=== PATIENT | male | born 1960 | race Caucasian/White ===

== ENCOUNTER 2017-02-09 10:56 | Emergency (ER) | payer OTHER ==
[2017-02-09 11:04] VITALS: BP 141/90
--- NOTE | 2017-02-09 12:02 | ER Document Report ---
ED General - General Mode of Arrival: Ambulatory Information source: Patient TRAVEL OUTSIDE OF THE [place] IN LAST 30 DAYS: No - HPI Onset: Other - Refer to HPI notes <EDITH TOLLIVER - Last Filed: 02/09/17 20:55> <JULIETTE PAIZ - Last Filed: 02/10/17 14:47> - General Chief Complaint: Abdominal Pain Stated Complaint: POSSIBLE PANCREAS PROBLEM Notes: Patient is a 56 year old male presenting to the ED for possible pancreatitis. Patient was called by urgent care and told to go to the ED to get evaluated for pancreatitis and get an ultrasound. Patient is unsure what the urgent care found and was not told any more information. Patient states that he does not have any symptoms, no epigastric pain, nausea, vomiting, headache, abdominal pain or other symptoms. Patient went to urgent care because he had had some dizziness and room spinning sensations when he stood up. Patient states this gets worse if he looks upwards. Patient states sometimes he feels off balance when he gets the room spinning sensation. 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 Patient denies any blurry or double vision with these sensations. Patient has a history of Hyperlipidemia, MN, and GERD. Patient states he was sent over by Dr. Magana, and today was his first appointment with the primary care physician. (EDITH TOLLIVER) - Related Data Allergies/Adverse Reactions: No Known Allergies Allergy (Unverified 02/09/17 11:03) Past Medical History - General Information source: Patient - Social History Smoking Status: Never Smoker Family History: None Patient has suicidal ideation: No Patient has homicidal ideation: No - Past Medical History Cardiac Medical History: Reports: Hx Heart Attack, Hx Hypercholesterolemia GI Medical History: Reports: Hx Gastroesophageal Reflux Disease <EDITH TOLLIVER - Last Filed: 02/09/17 20:55> Review of Systems - Review of Systems Constitutional: No symptoms reported EENT: No symptoms reported Cardiovascular: See HPI, Dizziness Respiratory: No symptoms reported Gastrointestinal: No symptoms reported Genitourinary: No symptoms reported Male Genitourinary: No symptoms reported Musculoskeletal: No symptoms reported Skin: No symptoms reported Hematologic/Lymphatic: No symptoms reported Neurological/Psychological: See HPI -: Yes All other systems reviewed and negative <EDITH TOLLIVER - Last Filed: 02/09/17 20:55> Physical Exam <EDITH TOLLIVER - Last Filed: 02/09/17 20:55> <JULIETTE PAIZ - Last Filed: 02/10/17 14:47> - Vital signs Vitals: Temp Pulse Resp BP Pulse Ox 98.5 F 78 20 141/90 H 97 02/09/17 11:03 02/09/17 11:03 02/09/17 11:03 02/09/17 11:03 02/09/17 11:03 - Notes Notes: GENERAL: Alert, interacts well. No acute distress. HEAD: Normocephalic, atraumatic. EYES: Pupils equal, round, and reactive to light. Extraocular movements intact. ENT: Oral mucosa moist, tongue midline. NECK: Full range of motion. Supple. Trachea midline. LUNGS: Clear to auscultation bilaterally, no wheezes, rales, or rhonchi. No respiratory distress. HEART: Regular rate and rhythm. No murmurs, gallops, or rubs. ABDOMEN: Soft, non-tender. Non-distended. Bowel sounds present in all 4 quadrants. EXTREMITIES: Moves all 4 extremities spontaneously. No edema. No cyanosis. NEUROLOGICAL: Alert and oriented x3. Normal speech. PSYCH: Normal affect, normal mood. SKIN: Warm, dry, normal turgor. No rashes or lesions noted. (EDITH TOLLIVER) Course - Laboratory Result Diagrams: 02/09/17 12:10 02/09/17 12:10 <EDITH TOLLIVER - Last Filed: 02/09/17 20:55> - Laboratory Result Diagrams: 02/09/17 12:10 02/09/17 12:10 <JULIETTE PAIZ - Last Filed: 02/10/17 14:47> - Re-evaluation Re-evalutation: 02/09/17 12:52 Patient presents to the emergency department says he sent by his primary care physician to rule out pancreatitis and they wanted ultrasound. Patient and family neurologic alert this with her first visit he does not have any symptoms they did some lab work called him back in time he needed to emergently go to the emergency department they mentioned hemoglobin A1c but did not tell him anything else on ED arrival and he has completely no symptoms whatsoever he does not have any abdominal pain nausea vomiting diarrhea fevers chills chest pain cough or shortness of breath. He has a long-standing history of dizziness which is not new or different today and sounds like vertebrobasilar insufficiency. He has a history of MN in the past but does not have any chest pain or shortness of breath. Has a normal physical exam vitals and abdominal examination. Patient is also not jaundiced and is on chronic Tylenol or concerns for Tylenol toxicity. He laboratory evaluation including white blood cell count lipase and liver enzymes are completely normal. At this point I am not certain what labs they were concerned about that they sent him over here urgently for the patient is asymptomatic well-appearing with normal stable labs and is stable to be discharged to follow-up with primary care physician in 3-4 days and discussed reasons for ED return (JULIETTE PAIZ) - Vital Signs Vital signs: Temp Pulse Resp BP Pulse Ox 98.5 F 78 20 141/90 H 97 02/09/17 11:03 02/09/17 11:03 02/09/17 11:03 02/09/17 11:03 02/09/17 11:03 - Laboratory Laboratory results interpreted by me: 02/09/17 02/09/17 12:10 12:10 Monocytes % 14.9 H BUN 23 H Discharge <EDITH TOLLIVER - Last Filed: 02/09/17 20:55> <JULIETTE PAIZ - Last Filed: 02/10/17 14:47> - Discharge Clinical Impression: evaluation for pancreatitis Condition: Stable Disposition: HOME, SELF-CARE Additional Instructions: sent by pcp for concerns for pancreatitis There are not having any symptoms of abdominal pain vomiting and your liver enzymes and pancreatic enzymes are all completely normal. At this point in time you are stable to go home follow-up with her primary care physician and return for increasing worsening any symptoms Contact your doctor at once or return here if you have increasing pain, shortness of breath, general swelling, increasing size of the abdomen, continued vomiting, muscle spasms, or other new symptoms. Scribe Attestation: 02/09/17 12:52 I personally performed the services described in the documentation, reviewed and edited the documentation which was dictated to my scribe in my presence, and it accurately records my words and actions. (JULIETTE PAIZ) Scribe Documentation - Scribe Written by Scribe:: Haider Jefferson 02/09/17 16:48 acting as scribe for :: Carlos <EDITH TOLLIVER - Last Filed: 02/09/17 20:55>
[2017-02-09 12:26] LABS: ABSOLUTE EOSINOPHILS # (AUTO) 0.2 10^3/uL (0.0-0.6); ABSOLUTE LYMPHOCYTES (AUTO) 1.6 10^3/uL (0.5-4.7); BASOPHILS % (AUTO) 0.7 % (0-2); EOSINOPHILS % (AUTO) 2.9 % (0-6); HEMATOCRIT 42.1 % (37.9-51.0); HEMOGLOBIN 14.1 g/dL (13.5-17.0); HGB HCT DIFFERENCE 0.2; LYMPHOCYTES % (AUTO) 22.8 % (13-45); MEAN CORPUSCULAR HEMOGLOBIN 29.3 pg (27.0-33.4); MEAN CORPUSCULAR HGB CONC 33.4 g/dL (32.0-36.0); MEAN CORPUSCULAR VOLUME 88 fl (80-97); MONOCYTES % (AUTO) 14.9 % (3-13); RED CELL DISTRIBUTION WIDTH 13.1 % (11.5-14.0); SEGMENTED NEUTROPHILS % (AUTO) 58.7 % (42-78); WHITE BLOOD COUNT 6.9 10^3/uL (4.0-10.5)
[2017-02-09 12:43] LABS: ALANINE AMINOTRANSFERASE 47 U/L (21-72); ALBUMIN 4.3 g/dL (3.5-5.0); ALKALINE PHOSPHATASE 110 U/L (38-126); ANION GAP 12 (5-19); ASPARTATE AMINO TRANSFERASE 30 U/L (17-59); BILIRUBIN,DIRECT 0.3 mg/dL (0.0-0.4); BILIRUBIN,TOTAL 0.5 mg/dL (0.2-1.3); BLOOD UREA NITROGEN 23 mg/dL (7-20); CALCIUM 9.1 mg/dL (8.4-10.2); CARBON DIOXIDE 26 mmol/L (22-30); CHLORIDE 107 mmol/L (98-107); CREATININE RESULT 1.01 mg/dL (0.52-1.25); GLUCOSE 90 mg/dL (75-110); LIPASE 59.4 U/L (23-300); POTASSIUM 4.3 mmol/L (3.6-5.0); SODIUM 144.7 mmol/L (137-145); TOTAL PROTEIN 7.5 g/dL (6.3-8.2)
== END 2017-02-09 13:46 | disposition home or self-care (01) ==
LOC: ER 10:56
DX: I25.2 Old myocardial infarction (principal); R42 Dizziness and giddiness; E78.00 Pure hypercholesterolemia, unspecified; K21.9 Gastro-esophageal reflux disease without esophagitis
CPT/HCPCS: 36415; 80053; 83690; 85025; 99284

== ENCOUNTER 2020-08-06 16:42 | Observation (INO) | payer OTHER ==
[2020-08-06] MEDS ORDERED: NITROGLYCERIN 0.4 MG/TAB 25 TAB/BOTTLE SL ONE (17:30)
--- NOTE | 2020-08-06 17:33 | ER Document Report ---
ED Medical Screen (RME) - General Chief Complaint: Chest Pressure Stated Complaint: CHEST PRESSURE Time Seen by Provider: 08/06/20 17:24 Information source: Patient Notes: Patient is a 59-year-old male comes emergency room complaining of anterior chest pain. Patient states that it started after lunch but did not give a specific time. He rated the worst pain to be a 3 out of 10 currently 2 out of 10. He states that it is just enough pressure and discomfort there is no sustained. Patient has a significant past medical history pertinent for cardiac problems. He states he has had a history of poor cardiac blockages all of them were less than 30 to 50% that was 10 years ago. Currently sees cardiology states he had a recent stress test this past August. Stated it was okay at that time. Patient does vape. He also has complaints of shortness of breath as well. Denies any radiation of pain at this time. He was given 2/325 Mg aspirin by his prior to coming the emergency room. Physical examination: Patient is a well-nourished well-developed 59-year-old male no apparent distress on examination today. Cardiac: Patient has a regular rhythm without any murmurs noted at this time. Lungs: Bilateral breath sounds decreased throughout no rhonchi rales or wheeze are heard. Abdomen: Bowel sounds are present. Chest: Palpation present. Chest not showing any facial tenderness to palpation. I have greeted and performed a rapid initial assessment of this patient. A comprehensive ED assessment and evaluation of the patient, analysis of test results and completion of the medical decision making process will be conducted by additional ED providers. Dictation of this chart was performed using voice recognition software; therefore, there may be some unintended grammatical errors. TRAVEL OUTSIDE OF THE [place] IN LAST 30 DAYS: No - Related Data Allergies/Adverse Reactions: No Known Allergies Allergy (Unverified 02/09/17 11:03) Past Medical History - Social History Frequency of alcohol use: None Drug Abuse: None - Past Medical History Cardiac Medical History: Reports: Hx Heart Attack, Hx Hypercholesterolemia Renal/ Medical History: Denies: Hx Peritoneal Dialysis GI Medical History: Reports: Hx Gastroesophageal Reflux Disease - Immunizations Hx Diphtheria, Pertussis, Tetanus Vaccination: Yes Physical Exam - Vital signs Vitals: Temp Pulse Resp BP Pulse Ox 98.0 F 81 18 137/75 H 98 08/06/20 17:05 08/06/20 17:05 08/06/20 17:05 08/06/20 17:05 08/06/20 17:05 Course - Vital Signs Vital signs: Temp Pulse Resp BP Pulse Ox 98.0 F 81 18 137/75 H 98 08/06/20 17:05 08/06/20 17:05 08/06/20 17:05 08/06/20 17:05 08/06/20 17:05
[2020-08-06 18:42] LABS: ABSOLUTE EOSINOPHILS # (AUTO) 0.1 10^3/uL (0.0-0.6); ABSOLUTE MONOCYTES (AUTO) 0.9 10^3/uL (0.1-1.4); ABSOLUTE NEUT (AUTO) 4.8 10^3/uL (1.7-8.2); BASOPHILS % (AUTO) 0.5 % (0-2); EOSINOPHILS % (AUTO) 1.9 % (0-6); HEMATOCRIT 41.7 % (37.9-51.0); LYMPHOCYTES % (AUTO) 25.3 % (13-45); MEAN CORPUSCULAR HEMOGLOBIN 29.4 pg (27.0-33.4); MEAN CORPUSCULAR HGB CONC 33.7 g/dL (32.0-36.0); MEAN CORPUSCULAR VOLUME 87 fl (80-97); PLATELET COUNT 210 10^3/uL (150-450); RED BLOOD COUNT 4.78 10^6/uL (4.35-5.55); RED CELL DISTRIBUTION WIDTH 12.7 % (11.5-14.0); SEGMENTED NEUTROPHILS % (AUTO) 61.3 % (42-78); TOTAL CELLS COUNTED % (AUTO) 100 %; WHITE BLOOD COUNT 7.8 10^3/uL (4.0-10.5)
[2020-08-06 18:49] LABS: APPEARANCE,URINE CLEAR; BILIRUBIN,URINE NEGATIVE (NEGATIVE); COLOR,URINE STRAW; GLUCOSE, URINE NEGATIVE (NEGATIVE); KETONES,URINE NEGATIVE (NEGATIVE); LEUKOCYTE ESTERASE,URINE NEGATIVE (NEGATIVE); NITRITE,URINE NEGATIVE (NEGATIVE); PROTEIN,URINE NEGATIVE (NEGATIVE); URINE SPECIFIC GRAVITY 1.006; UROBILINOGEN,URINE NEGATIVE mg/dL (<2.0)
[2020-08-06 18:57] LABS: ALBUMIN 4.4 g/dL (3.5-5.0); ALKALINE PHOSPHATASE 96 U/L (38-126); ANION GAP 8 (5-19); ASPARTATE AMINO TRANSFERASE 33 U/L (17-59); BILIRUBIN,DIRECT 0.1 mg/dL (0.0-0.4); BILIRUBIN,TOTAL 0.6 mg/dL (0.2-1.3); BLOOD UREA NITROGEN 27 mg/dL (7-20); CALCIUM 9.9 mg/dL (8.4-10.2); CARBON DIOXIDE 31 mmol/L (22-30); CHLORIDE 104 mmol/L (98-107); GLUCOSE 117 mg/dL (75-110); POTASSIUM 4.3 mmol/L (3.6-5.0); TOTAL PROTEIN 7.5 g/dL (6.3-8.2)
[2020-08-06] MEDS ORDERED: NITROGLYCERIN 0.4 MG/TAB 25 TAB/BOTTLE ONE (21:22)
[2020-08-06] MEDS ORDERED: NITROGLYCERIN 2% OINTMENT 1 GM PACKET TP ONE (22:07)
--- NOTE | 2020-08-06 23:03 | ER Document Report ---
ED General - General Chief Complaint: Chest Pressure Stated Complaint: CHEST PRESSURE Time Seen by Provider: 08/06/20 17:24 TRAVEL OUTSIDE OF THE [place] IN LAST 30 DAYS: No - HPI Context: Chief Complaint: [Chest tightness] [59-year-old male with a history of hypertension, former tobacco use, now vaping, history of elevated cholesterol, history of known coronary artery disease, presents complaining of chest tightness that has been present on and off throughout the day today. Patient states sometimes he developed the chest tightness today while he was working. Patient states the pain was a 2 at its worst and currently is a 1 while he is sitting in bed. Patient has had a catheterization done in the past which showed evidence of multiple vessel disease but no interventions were done according to the patient ] History obtained from [patient] Symptoms began:[This morning] Onset: [With activity] Timing: [Came on after several minutes of activity] Quality: [Tightness] Intensity: [2 out of 5] Location: [Mid chest] Radiation: [Denies] [The pain does not migrate to a new location.] Aggravating factors: Activity Relieving factors: [none] [Denies] SOB [Denies] nausea [Denies] vomiting [Denies] sweats [Denies] fever [Denies] cough [Denies] calf or leg swelling or pain - Related Data Allergies/Adverse Reactions: No Known Allergies Allergy (Unverified 02/09/17 11:03) Past Medical History - General Information source: Patient - Social History Smoking Status: Former Smoker Frequency of alcohol use: None Drug Abuse: None Family History: None, CAD - Past Medical History Cardiac Medical History: Reports: Hx Heart Attack, Hx Hypercholesterolemia Renal/ Medical History: Denies: Hx Peritoneal Dialysis GI Medical History: Reports: Hx Gastroesophageal Reflux Disease - Immunizations Hx Diphtheria, Pertussis, Tetanus Vaccination: Yes Review of Systems - Review of Systems Notes: Review of systems as below unless otherwise stated in HPI. CONSTITUTIONAL [No] fever, [No] chills. EYES [No] eye pain. ENT [No] URI symptoms, [No] sore throat, [No] ear pain. CARDIOVASCULAR Positive] chest pain, [No] palpitations, [No] edema. RESPIRATORY [No] Cough, [No] SOB, [No] wheezing. GASTROINTESTINAL [No] abdominal pain, [No] nausea, [No] Diarrhea, [No] Vomiting, [No] constipation, [No] melena, [No] rectal bleeding. GENITOURINARY [No] dysuria, [No] urinary frequency, [No] hematuria, [No] urinary urgency MUSCULOSKELETAL [No] Back pain. SKIN [No] Rash. NEUROLOGIC [No] Headache, [No] recent seizures, [No] paralysis,[No] parathesias. ENDOCRINE [No] polyuria. HEMO/LYMPATIC [No] easy brusing PSYCHIATRIC [No] depression. Physical Exam - Vital signs Vitals: Temp Pulse Resp BP Pulse Ox 98.0 F 81 18 137/75 H 98 08/06/20 17:05 08/06/20 17:05 08/06/20 17:05 08/06/20 17:05 08/06/20 17:05 - Notes Notes: CONSTITUTIONAL [Vital signs reviewed, Patient appears comfortable, Alert and oriented X 3, Normal stature.] HEAD [Atraumatic, Normocephalic.] EYES [Eyes are normal to inspection, No discharge from eyes, Extraocular muscles intact, Sclera are normal, Conjunctiva are normal.] ENT [External ears normal to inspection, Nose examination normal, Mouth normal to inspection.] NECK [Normal ROM, No jugular venous distention, No meningeal signs, ] RESPIRATORY CHEST [Chest is nontender, Breath sounds normal, No respiratory distress.] CARDIOVASCULAR [RRR, No murmurs, Normal S1 S2, No rub, No gallop.] ABDOMEN [Abdomen is nontender, No pulsatile masses, No other masses, Bowel sounds normal, No distension, No peritoneal signs, No hernias.] BACK [There is no CVA Tenderness, There is no tenderness to palpation, Normal inspection.] UPPER EXTREMITY [Inspection normal, No cyanosis, No clubbing, No edema, LOWER EXTREMITY [Inspection normal, No cyanosis, No clubbing, No edema, No calf tenderness, NEURO [No focal motor deficits, No focal sensory deficits, Speech normal.] SKIN [Skin is warm, Skin is dry, Skin is normal color.] PSYCHIATRIC [Normal affect. ] Course - Re-evaluation Re-evalutation: 08/06/20 23:01 Differential diagnosis: ACS, stable angina, COPD HEART Score: History1 ECG1 Age1 Risk Factors2 Troponin Total: 5 If HEART score is = 3 AND both tronponin measurments are normal, the 30 day risk of a major adverse cardiac event (all-cause mortality, myocardia infarction or need for coronary revscularization) is < 1% (Sensitivity 100%, NPV 100%). Chest pain in a patient without evidence of cardiac or other serious etiology on workup today. I discussed with patient that, based on their age, risk factors and emergency department testing today, the likelihood that their symptoms are related to a heart attack is very low (estimated risk of heart attack or over the next 30 days of less than 1%). The patient demonstrates decision making capacity and has verbalized an understanding of these risks to me. Based on this, the patient has chosen to follow-up as an outpatient. Usual chest pain return precautions reviewed. The patient states understanding and agreement with this plan. - Vital Signs Vital signs: Temp Pulse Resp BP Pulse Ox 98.4 F 81 17 116/75 98 08/07/20 05:00 08/06/20 17:05 08/07/20 05:00 08/07/20 05:00 08/07/20 05:00 - Laboratory Results Result Diagrams: 08/06/20 18:02 08/06/20 18:02 Laboratory Results Interpreted: 08/06/20 08/06/20 18:02 18:02 Carbon Dioxide 31 H BUN 27 H Glucose 117 H Urine Ascorbic Acid 20 H Critical Laboratory Results Reviewed: No Critical Results Attending or Supervising Physician who Reviewed Labs: MIN MENDOZA IV - Radiology Results Critical Radiology Results Reviewed: No Critical Results Attending or Supervising Physician who Reviewed Radiology: MIN MENDOZA IV - EKG Interpretation by Me Additional EKG results interpreted by me: 08/07/20 00:48 EKG performed on 08/06/2020 at 1657 hrs. was interpreted by this MD. Findings: Normal sinus rhythm, rate 83, normal axis, NH interval appears to be within normal limits, P waves preceding QRS complexes, QRS complexes appear narrow, QTC is 461, there are no obvious patterns of ST segment elevation, depression or reciprocal changes seen to suggest acute myocardial ischemia or infarction. Impression: Normal sinus rhythm with nonspecific ST segments. - Consults Dr. Butterfield Time consulted: 00:50 Consulted provider: will come to ER Discharge - Discharge Clinical Impression: Chest pain Qualifiers: Chest pain type: unspecified Qualified Code(s): R07.9 - Chest pain, unspecified Disposition: ADMITTED OBSERVATION [facility] Admitted: Telemetry
[2020-08-07] MEDS ORDERED: ONDANSETRON HCL INJ/PF 4 MG/2 ML SDV IV PRN (01:40)
[2020-08-07] MEDS ORDERED: ACETAMINOPHEN 325 MG TABLET PO PRN (01:40)
[2020-08-07] MEDS ORDERED: NITROGLYCERIN 0.4 MG/TAB 25 TAB/BOTTLE SL PRN (01:47)
--- NOTE | 2020-08-07 01:52 | RADIOLOGY REPORT (SQ) ---
EXAM DESCRIPTION: Site: CHEST SINGLE VIEW RP: XR CHEST 1 VIEW CLINICAL HISTORY: 59 years Male; chest pain; COMPARISON: None. FINDINGS: Lungs: Lungs are clear, with no focal infiltrate, pneumothorax, or pleural effusion. Mediastinum: Mediastinum is within normal limits for this positioning. Bones: Bony structures are unremarkable. IMPRESSION: 1. No acute pulmonary findings.
--- NOTE | 2020-08-07 02:02 | PDOC H&P ---
History of Present Illness Admission Date/PCP: MILTON SEGOVIA MD Patient complains of: Chest pain History of Present Illness: SUGEY ZAMARRIPA is a 59 year old male with a history of CAD which is being medically managed, hyperlipidemia, obesity and alcohol dependence who presents to the ER reporting pressure-like substernal chest pain which started in the morning while he was at work. He describes it as a discomfort and pressure like heaviness rather than pain and he rates it 4/10 intensity, nonradiating, aggravated by exertion and relieved with rest and nitroglycerin. He also endorses associated nausea and diaphoresis. He reports that he had similar sym ptoms about 10 years back and he had cath done multiple blockages and was being managed medically with Plavix, aspirin and statin. Follows up with outside cardiology with Dr. Thomas and he reports that the stress test was done about 11 months back. He denies any cough, fever, chills, palpitation, dizziness or headache or weakness of extremities. He has not noticed any change in his bowel or urinary habits. Past Medical History Cardiac Medical History: Reports: Myocardial Infarction, Hyperlipidema GI Medical History: Reports: Gastroesophageal Reflux Disease Social History Information Source: Patient Smoking Status: Former Smoker Electronic Cigarette use?: Yes Hx Recreational Drug Use: No Drugs: None - Advance Directive Resuscitation Status: Full Code Family History Family History: None, CAD Parental Family History Reviewed: Yes Children Family History Reviewed: Yes Sibling(s) Family History Reviewed.: Yes Medication/Allergy Allergies/Adverse Reactions: No Known Allergies Allergy (Unverified 02/09/17 11:03) Review of Systems Constitutional: ABSENT: chills, fever(s), headache(s), weight gain, weight loss Eyes: ABSENT: visual disturbances Cardiovascular: PRESENT: as per HPI Respiratory: ABSENT: cough, hemoptysis Gastrointestinal: ABSENT: abdominal pain, constipation, diarrhea, hematemesis, hematochezia, nausea, vomiting Genitourinary: ABSENT: dysuria, hematuria Musculoskeletal: ABSENT: joint swelling Integumentary: ABSENT: rash, wounds Neurological: ABSENT: abnormal gait, abnormal speech, confusion, dizziness, focal weakness, syncope Psychiatric: ABSENT: anxiety, depression, homidical ideation, suicidal ideation Endocrine: ABSENT: cold intolerance, heat intolerance, polydipsia, polyuria Hematologic/Lymphatic: ABSENT: easy bleeding, easy bruising Physical Exam Vital Signs: Temp Pulse Resp BP Pulse Ox 98.0 F 81 17 118/76 97 08/06/20 17:05 08/06/20 17:05 08/07/20 01:00 08/06/20 23:00 08/07/20 01:00 Intake & Output 08/05/20 08/06/20 08/07/20 06:59 06:59 06:59 Weight 107.3 kg Additional comments: GENERAL APPEARANCE: Alert and oriented x3, in no acute distress HEENT: Normocephalic and atraumatic. No scleral icterus. Moist oral mucosa NECK: Supple. No lymphadenopathy or tenderness. No carotid bruit. No JVD CHEST: Symmetric. Nontender to palpation. LUNGS: Clear with good air entry bilaterally. No wheezing or crackles HEART: Regular rate and rhythm with normal S1 and S2. No murmurs, gallops, or rubs. ABDOMEN: soft, active bowel sounds, no direct or rebound tenderness. No organomegaly detected. EXTREMITIES: No cyanosis, clubbing, or edema. MUSCULOSKELETAL: No deformity, atrophy or swelling noted PSYCHIATRIC: Recent and remote memory is intact. Appropriate mood and affect. SKIN: Warm, dry, and well perfused. No lesions or rashes are noted. NEUROLOGIC: No focal sensory or motor deficits are noted. Results Laboratory Results: 08/06/20 18:02 08/06/20 18:02 08/06/20 08/06/20 08/06/20 18:02 18:02 18:02 WBC 7.8 RBC 4.78 Hgb 14.0 Hct 41.7 MCV 87 MCH 29.4 MCHC 33.7 RDW 12.7 Plt Count 210 Seg Neutrophils % 61.3 Sodium 142.8 Potassium 4.3 Chloride 104 Carbon Dioxide 31 H Anion Gap 8 BUN 27 H Creatinine 1.16 Est GFR ( Amer) > 60 Glucose 117 H Calcium 9.9 Total Bilirubin 0.6 AST 33 Alkaline Phosphatase 96 Total Protein 7.5 Albumin 4.4 Lipase Urine Color STRAW Urine Appearance CLEAR Urine pH 5.0 Ur Specific [place] 1.006 Urine Protein NEGATIVE Urine Glucose (UA) NEGATIVE Urine Ketones NEGATIVE Urine Blood NEGATIVE Urine Nitrite NEGATIVE Ur Leukocyte Esterase NEGATIVE Urine WBC (Auto) 0 Urine RBC (Auto) 0 08/06/20 18:02 WBC RBC Hgb Hct MCV MCH MCHC RDW Plt Count Seg Neutrophils % Sodium Potassium Chloride Carbon Dioxide Anion Gap BUN Creatinine Est GFR ( Amer) Glucose Calcium Total Bilirubin AST Alkaline Phosphatase Total Protein Albumin Lipase 82.6 Urine Color Urine Appearance Urine pH Ur Specific [place] Urine Protein Urine Glucose (UA) Urine Ketones Urine Blood Urine Nitrite Ur Leukocyte Esterase Urine WBC (Auto) Urine RBC (Auto) 08/06/20 08/06/20 18:02 23:07 Troponin I < 0.012 < 0.012 Assessment and Plan - Diagnosis (1) Chest pain Qualifiers: Chest pain type: unspecified Qualified Code(s): R07.9 - Chest pain, unspecified Is this a current diagnosis for this admission?: Yes Plan: Patient presents with typical chest pain which is aggravated by exertion relieved with rest and nitroglycerin Initial EKG at the ED showed Q waves on inferior leads but no significant ST-T wave changes Cardiac enzyme negative Patient has multiple risk factors and previous history of CAD, heart score was 5 puts him at moderate risk group Will admit him for closer observation Continuous telemetry monitoring Nitroglycerin as needed for chest pain Continue Plavix, aspirin, atorvastatin and metoprolol Trend cardiac enzymes every 6 hourly Obtain lipid panel in the morning Will likely require stress test once work-up is completed (2) Hyperlipidemia Is this a current diagnosis for this admission?: Yes Plan: Obtain lipid panel in the morning Continue atorvastatin (3) GERD (gastroesophageal reflux disease) Is this a current diagnosis for this admission?: Yes Plan: Currently symptoms are well controlled Continue famotidine (4) Tobacco dependence Is this a current diagnosis for this admission?: Yes Plan: Counseled on the harms of vaping and encouraged him to quit (5) Obesity (BMI 30-39.9) Is this a current diagnosis for this admission?: Yes Plan: Continued nutritional counseling and lifestyle adjustments including regular exercise - Time Time Spent with patient: 35 or more minutes Total Critical Time (Minutes): 40 Smoking Cessation Education: 3 to 10 minutes Medications reviewed and adjusted accordingly: Yes Anticipated Discharge Disposition: Home, Self Care Anticipated Discharge Timeframe: within 48 hours - Inpatient Certification Based on my medical assessment, after consideration of the patient's comorbidities, presenting symptoms, or acuity I expect that the services needed warrant INPATIENT care.: Yes I certify that my determination is in accordance with my understanding of Medicare's requirements for reasonable and necessary INPATIENT services [42 CFR 412.3e].: Yes Medical Necessity: Need Close Monitoring Due to Risk of Patient Decompensation, Need For Continuous Telemetry Monitoring, Risk of Complication if Not Cared For in Hospital Post Hospital Care: D/C or Transfer Summary
[2020-08-07 07:14] LABS: ANION GAP 10 (5-19); BLOOD UREA NITROGEN 21 mg/dL (7-20); CALCIUM 9.1 mg/dL (8.4-10.2); CARBON DIOXIDE 24 mmol/L (22-30); CHLORIDE 107 mmol/L (98-107); CHOLESTEROL 131.26 mg/dL (0-200); GLUCOSE 113 mg/dL (75-110); POTASSIUM 4.2 mmol/L (3.6-5.0); TRIGLYCERIDES 244 mg/dL (<150)
[2020-08-07 07:24] LABS: DIRECT LDL 55 mg/dL (<100)
[2020-08-07 07:25] LABS: VLDL CHOLESTEROL 48.8 mg/dL (10-31)
[2020-08-07] MEDS ORDERED: FAMOTIDINE 20 MG TABLET PO SCH (10:00)
[2020-08-07] MEDS ORDERED: ENOXAPARIN SODIUM INJ 40 MG/0.4 ML DISP.SYRIN SUBCUT SCH (10:00)
[2020-08-07] MEDS ORDERED: CLOPIDOGREL BISULFATE 75 MG TABLET PO SCH (10:00)
[2020-08-07] MEDS ORDERED: ASPIRIN 81 MG TABLET, CHEWABLE PO SCH (10:00)
[2020-08-07] MEDS ORDERED: METOPROLOL SUCCINATE 50 MG TAB.SR.24H PO SCH (10:00)
[2020-08-07 13:17] VITALS: BP 118/76
--- NOTE | 2020-08-07 15:19 | PDOC DISCHARGE SUMMARY ---
Impression - Admit/DC Date/PCP Admission Date/Primary Care Provider: 08/07/20 01:51 MILTON SEGOVIA MD Discharge Date: 08/07/20 - Assessment Summary: (1) Chest pain Qualifiers: Chest pain type: unspecified Qualified Code(s): R07.9 - Chest pain, unspecified Is this a current diagnosis for this admission?: Yes Plan: Patient presents with typical chest pain which is aggravated by exertion relieved with rest and nitroglycerin Initial EKG at the ED showed Q waves on inferior leads but no significant ST-T wave changes Cardiac enzyme negative Patient has multiple risk factors and previous history of CAD, heart score was 5 puts him at moderate risk group Will admit him for closer observation Continuous telemetry monitoring Nitroglycerin as needed for chest pain Continue Plavix, aspirin, atorvastatin and metoprolol Trend cardiac enzymes every 6 hourly Obtain lipid panel in the morning Will likely require stress test once work-up is completed 08/07/2020-patient chest pain-free this morning. 3 sets of troponins are negative. EKG within normal limits. She wants to go home and follow-up with primary applied behavior specialist next week. (2) Hyperlipidemia Is this a current diagnosis for this admission?: Yes Plan: Obtain lipid panel in the morning Continue atorvastatin (3) GERD (gastroesophageal reflux disease) Is this a current diagnosis for this admission?: Yes Plan: Currently symptoms are well controlled Continue famotidine (4) Tobacco dependence Is this a current diagnosis for this admission?: Yes Plan: Counseled on the harms of vaping and encouraged him to quit (5) Obesity (BMI 30-39.9) Is this a current diagnosis for this admission?: Yes Plan: Continued nutritional counseling and lifestyle adjustments including regular exercise - Additional Information Resuscitation Status: Full Code Discharge Diet: Cardiac Discharge Activity: Activity As Tolerated Referrals: MILTON SEGOVIA MD [Primary Care Provider] - Follow up as needed Home Medications: Acetaminophen [Tylenol] 650 mg PO DAILYP PRN 08/07/20 Aspirin [Adult Aspirin Regimen] 81 mg PO DAILY 08/07/20 Atorvastatin Calcium [Lipitor 20 mg Tablet] 20 mg PO QHS 08/07/20 Bupropion HCl [Bupropion HCl Sr] 150 mg PO BID 08/07/20 Clopidogrel Bisulfate [Plavix 75 mg Tablet] 75 mg PO DAILY 08/07/20 Famotidine [Pepcid] 20 mg PO DAILY 08/07/20 Icosapent Ethyl [Vascepa] 2 gm PO BID 08/07/20 Metoprolol Tartrate [Lopressor] 50 mg PO Q12 08/07/20 Nitroglycerin [Nitrostat 0.4 mg (1/150 Gr) Tabs 25/Bottle] 1 tab SL Q5MP PRN 08/07/20 History of Present Illiness History of Present Illness: SUGEY ZAMARRIPA is a 59 year old male 59 year old male with a history of CAD which is being medically managed, hyperlipidemia, obesity and alcohol dependence who presents to the ER reporting pressure-like substernal chest pain which started in the morning while he was at work. He describes it as a discomfort and pressure like heaviness rather than pain and he rates it 4/10 intensity, nonradiating, aggravated by exertion and relieved with rest and nitroglycerin. He also endorses associated nausea and diaphoresis. He reports that he had similar symptoms about 10 years back and he had cath done multiple blockages and was being managed medically with Plavix, aspirin and statin. Follows up with outside cardiology with Dr. Thomas and he reports that the stress test was done about 11 months back. He denies any cough, fever, chills, palpitation, dizziness or headache or weakness of ext remities. He has not noticed any change in his bowel or urinary habits. Hospital Course Hospital Course: 59 year old male with a history of CAD which is being medically managed, hyperlipidemia, obesity and alcohol dependence who presents to the ER reporting pressure-like substernal chest pain which started in the morning while he was at work. He describes it as a discomfort and pressure like heaviness rather than pain and he rates it 4/10 intensity, nonradiating, aggravated by exertion and relieved with rest and nitroglycerin. He also endorses associated nausea and diaphoresis. He reports that he had similar symptoms about 10 years back and he had cath done multiple blockages and was being managed medically with Plavix, aspirin and statin. Follows up with outside cardiology with Dr. Thomas and he reports that the stress test was done about 11 months back. He denies any cough, fever, chills, palpitation, dizziness or headache or weakness of extremities. He has not noticed any change in his bowel or urinary habits. [id number]-old male with history of coronary artery disease admitted with chest pains. EKGs are within normal limits 3 sets of troponins within normal limits. This morning patient is chest pain-free and requesting to go home and follow-up with primary applied behavior specialist. Patient was given a prescription for cholesterol medication. Patient to continue aspirin at this time. Diet exercise weight loss lifestyle modifications discussed with the patient. Physical Exam Vital Signs: Temp Pulse Resp BP Pulse Ox 98.1 F 65 16 118/76 99 08/07/20 13:13 08/07/20 13:13 08/07/20 13:13 08/07/20 13:13 08/07/20 13:13 Intake & Output 08/06/20 08/07/20 08/08/20 06:59 06:59 06:59 Intake Total 240 Balance 240 Weight 107.3 kg General appearance: PRESENT: no acute distress, cooperative Head exam: PRESENT: atraumatic Eye exam: PRESENT: PERRLA Ear exam: PRESENT: normal external ear exam Mouth exam: PRESENT: neck supple Neck exam: ABSENT: carotid bruit, JVD, lymphadenopathy, thyromegaly Respiratory exam: PRESENT: decreased breath sounds Cardiovascular exam: PRESENT: RRR. ABSENT: diastolic murmur, rubs, systolic murmur GI/Abdominal exam: PRESENT: normal bowel sounds, soft. ABSENT: distended, guarding, mass, organolmegaly, rebound, tenderness Rectal exam: PRESENT: deferred Extremities exam: PRESENT: full ROM. ABSENT: calf tenderness, clubbing, pedal edema Neurological exam: PRESENT: alert, awake, oriented to person, oriented to place, oriented to time, oriented to situation, CN II-XII grossly intact. ABSENT: motor sensory deficit Psychiatric exam: PRESENT: appropriate affect, normal mood. ABSENT: homicidal ideation, suicidal ideation Results Laboratory Results: WBC 7.8 10^3/uL (4.0-10.5) 08/06/20 18:02 RBC 4.78 10^6/uL (4.35-5.55) 08/06/20 18:02 Hgb 14.0 g/dL (13.5-17.0) 08/06/20 18:02 Hct 41.7 % (37.9-51.0) 08/06/20 18:02 MCV 87 fl (80-97) 08/06/20 18:02 MCH 29.4 pg (27.0-33.4) 08/06/20 18:02 MCHC 33.7 g/dL (32.0-36.0) 08/06/20 18:02 RDW 12.7 % (11.5-14.0) 08/06/20 18:02 Plt Count 210 10^3/uL (150-450) 08/06/20 18:02 Lymph % (Auto) 25.3 % (13-45) 08/06/20 18:02 Emanuel % (Auto) 11.0 % (3-13) 08/06/20 18:02 Eos % (Auto) 1.9 % (0-6) 08/06/20 18:02 Baso % (Auto) 0.5 % (0-2) 08/06/20 18:02 Absolute Neuts (auto) 4.8 10^3/uL (1.7-8.2) 08/06/20 18:02 Absolute Lymphs (auto) 2.0 10^3/uL (0.5-4.7) 08/06/20 18:02 Absolute Monos (auto) 0.9 10^3/uL (0.1-1.4) 08/06/20 18:02 Absolute Eos (auto) 0.1 10^3/uL (0.0-0.6) 08/06/20 18:02 Absolute Basos (auto) 0.0 10^3/uL (0.0-0.2) 08/06/20 18:02 Seg Neutrophils % 61.3 % (42-78) 08/06/20 18:02 Sodium 141.2 mmol/L (137-145) 08/07/20 05:49 Potassium 4.2 mmol/L (3.6-5.0) 08/07/20 05:49 Chloride 107 mmol/L (98-107) 08/07/20 05:49 Carbon Dioxide 24 mmol/L (22-30) 08/07/20 05:49 Anion Gap 10 (5-19) 08/07/20 05:49 BUN 21 mg/dL (7-20) H 08/07/20 05:49 Creatinine 0.99 mg/dL (0.52-1.25) 08/07/20 05:49 Est GFR ( Amer) > 60 (>60) 08/07/20 05:49 Est GFR (MDRD) Non-Af > 60 (>60) 08/07/20 05:49 Glucose 113 mg/dL (75-110) H 08/07/20 05:49 Calcium 9.1 mg/dL (8.4-10.2) 08/07/20 05:49 Total Bilirubin 0.6 mg/dL (0.2-1.3) 08/06/20 18:02 Direct Bilirubin 0.1 mg/dL (0.0-0.4) 08/06/20 18:02 Neonat Total Bilirubin Not Reportable 08/06/20 18:02 Neonat Direct Bilirubin Not Reportable 08/06/20 18:02 Neonat Indirect Bili Not Reportable 08/06/20 18:02 AST 33 U/L (17-59) 08/06/20 18:02 ALT 34 U/L (<50) 08/06/20 18:02 Alkaline Phosphatase 96 U/L (38-126) 08/06/20 18:02 Troponin I < 0.012 ng/mL 08/07/20 05:49 Total Protein 7.5 g/dL (6.3-8.2) 08/06/20 18:02 Albumin 4.4 g/dL (3.5-5.0) 08/06/20 18:02 Triglycerides 244 mg/dL (<150) H 08/07/20 05:49 Cholesterol 131.26 mg/dL (0-200) 08/07/20 05:49 LDL Cholesterol Direct 55 mg/dL (<100) 08/07/20 05:49 VLDL Cholesterol 48.8 mg/dL (10-31) H 08/07/20 05:49 HDL Cholesterol 28 mg/dL (>40) L 08/07/20 05:49 Lipase 82.6 U/L (23-300) 08/06/20 18:02 Urine Color STRAW 08/06/20 18:02 Urine Appearance CLEAR 08/06/20 18:02 Urine pH 5.0 (5.0-9.0) 08/06/20 18:02 Ur Specific Mullens 1.006 08/06/20 18:02 Urine Protein NEGATIVE mg/dL (NEGATIVE) 08/06/20 18:02 Urine Glucose (UA) NEGATIVE mg/dL (NEGATIVE) 08/06/20 18:02 Urine Ketones NEGATIVE mg/dL (NEGATIVE) 08/06/20 18:02 Urine Blood NEGATIVE (NEGATIVE) 08/06/20 18:02 Urine Nitrite NEGATIVE (NEGATIVE) 08/06/20 18:02 Urine Bilirubin NEGATIVE (NEGATIVE) 08/06/20 18:02 Urine Urobilinogen NEGATIVE mg/dL (<2.0) 08/06/20 18:02 Ur Leukocyte Esterase NEGATIVE (NEGATIVE) 08/06/20 18:02 Urine WBC (Auto) 0 /HPF 08/06/20 18:02 Urine RBC (Auto) 0 /HPF 08/06/20 18:02 Urine Ascorbic Acid 20 (NEGATIVE) H 08/06/20 18:02 08/06/20 08/06/20 08/07/20 18:02 23:07 05:49 Troponin I < 0.012 < 0.012 < 0.012 Impressions: Chest X-Ray 08/07/20 00:46 IMPRESSION: 1. No acute pulmonary findings. Plan Time Spent: Greater than 30 Minutes Stroke Is this a Stroke Patient?: No Acute Heart Failure Is this a Heart Failure Patient?: No
--- NOTE | 2020-08-07 17:18 | EKG REPORT ---
SEVERITY:- ABNORMAL ECG - SINUS RHYTHM PROBABLE LEFT ATRIAL ABNORMALITY INFERIOR INFARCT, AGE INDETERMINATE : Confirmed by: Pari Sutton MD 07-Aug-2020 17:18:10
== END 2020-08-07 14:10 | disposition home or self-care (01) ==
LOC: ER 16:42 → EH 08-07 01:51 → 4N 08-07 05:25
PROVIDERS: ADMIT Student in an Organized Health Care Education/Training Program; ATTEND Internal Medicine
DX: R07.9 Chest pain, unspecified (principal); E78.5 Hyperlipidemia, unspecified; K21.9 Gastro-esophageal reflux disease without esophagitis; E66.9 Obesity, unspecified; F10.20 Alcohol dependence, uncomplicated; R11.0 Nausea; R61 Generalized hyperhidrosis; F17.290 Nicotine dependence, other tobacco product, uncomplicated; Z79.82 Long term (current) use of aspirin; Z79.899 Other long term (current) drug therapy; I25.10 Atherosclerotic heart disease of native coronary artery without angina pectoris
CPT/HCPCS: 93005; 99285; 96372; 36415 ×2; 87086; 83690; 85025; 87088; 80048; 80053; 81001; 84484 ×2; 80061; 71045; 93010; G0378 ×2; J1650